=== PATIENT | female | born 1985 | race Caucasian/White ===

== ENCOUNTER 2016-06-22 14:25 | Outpatient (CLI) | payer OTHER | END 2016-06-22 14:26 | disposition critical access hospital (66) | DX: R07.9 Chest pain, unspecified (principal) | CPT/HCPCS: A0425; A0427 ==

== ENCOUNTER 2016-06-22 14:52 | Emergency (ER) | payer OTHER ==
[2016-06-22] MEDS ORDERED: MORPHINE 2 MG/ML SYRINGE IVP STA (15:13)
[2016-06-22] MEDS ORDERED: MORPHINE 2 MG/ML SYRINGE ONE (15:27)
== END 2016-06-22 18:25 | disposition home or self-care (01) ==
DX: R09.1 Pleurisy (principal); J45.909 Unspecified asthma, uncomplicated

== ENCOUNTER 2016-08-03 23:17 | Emergency (ER) | payer OTHER ==
--- NOTE | 2016-08-04 00:28 | ED Physician Documentation ---
PD HPI URI - Stated complaint Stated Complaint: COUGH/PHLEGM - Chief complaint Chief Complaint: Resp - History obtained from History obtained from: Patient - History of Present Illness Timing - onset: How many days ago (4) Timing duration: Days (4) Timing details: Gradual onset Pain level max: 0 Pain level now: 0 Associated symptoms: Dry cough. No: Fever, Chills, Sweats, Ear pain, Nasal congestion, Sinus pain, Sore throat, Productive cough, Chest pain, Dyspnea, NVD Improves by: Nothing Worsened by: Other (no exacerbating factors) Recently seen: Emergency Dept (last month (chest pain)) Review of Systems Constitutional: denies: Fever, Chills, Sweats Throat: denies: Sore throat Cardiac: denies: Chest pain / pressure Respiratory: reports: Cough. denies: Dyspnea PD PAST MEDICAL HISTORY - Past Medical History Past Medical History: No Respiratory: Asthma Musculoskeletal: Chronic back pain - Past Surgical History Past Surgical History: No - Present Medications Home Medications: Ambulatory Orders Medication Instructions Recorded Confirmed Benzonatate [Tessalon Perle] 100 mg PO TID PRN #20 capsule 08/04/16 guaiFENesin/CODEINE [Robitussin AC] 5 - 10 ml PO Q6H PRN #100 udc 08/04/16 - Allergies Allergies/Adverse Reactions: Allergies Allergy/AdvReac Type Severity Reaction Status Date / Time acetylcysteine Allergy Severe Respiratory Verified 08/03/16 23:37 [From Mucomyst] acetaminophen [From Vicodin] Allergy Intermediate Emesis Verified 12/06/13 17:29 hydrocodone bitartrate * Allergy Intermediate Emesis Verified 12/06/13 17:29 [From Vicodin] Latex, Natural Rubber AdvReac Intermediate Rash Verified 12/06/13 17:29 ciprofloxacin [From Cipro] AdvReac Mild vomiting Verified 12/06/13 17:29 and diarrhea ciprofloxacin HCl * AdvReac Mild vomiting Verified 12/06/13 17:29 [From Cipro] and diarrhea - Social History Does the pt smoke?: No Smoking Status: Never smoker Does the pt drink ETOH?: No Does the pt have substance abuse?: No - Immunizations Immunizations are current?: Yes - POLST Patient has POLST: No PD ED PE NORMAL - Vitals Vital signs reviewed: Yes - General General: Alert and oriented X 3, No acute distress, Well developed/nourished, Other (occasional dry cough during H+P) - Cardiac Cardiac: RRR, No murmur - Respiratory Respiratory: No respiratory distress, Clear bilaterally Results - Vitals Vitals: Vital Signs - 24 hr 08/03/16 08/04/16 23:22 01:02 Temperature 36.2 C L 36.9 C Heart Rate 86 89 Respiratory 16 16 Rate Blood Pressure 110/72 143/91 H O2 Saturation 98 100 Oxygen O2 Source Room air PD MEDICAL DECISION MAKING - ED course Complexity details: considered differential, d/w patient ED course: Patient c/o dry cough but no other symptoms, her chief concern is getting the cough under control so she can get some sleep. Departure - Departure Disposition: 01 Home, Self Care Clinical Impression: Cough Condition: Good Instructions: ED URI Viral Follow-Up: Jovanni Archer DO [Primary Care Provider] - Within 3 Days Prescriptions: guaiFENesin/CODEINE [Robitussin AC] 5 - 10 ml PO Q6H PRN #100 udc PRN Reason: Cough Benzonatate [Tessalon Perle] 100 mg PO TID PRN #20 capsule PRN Reason: Cough Discharge Date/Time: 08/04/16 01:04
[2016-08-04] MEDS ORDERED: guaiFENesin/CODEINE 5 ML UDC PO STA (00:56)
[2016-08-04] MEDS ORDERED: guaiFENesin/CODEINE 5 ML UDC ONE (00:58)
[2016-08-04 01:03] VITALS: BP 143/91
== END 2016-08-04 01:04 | disposition home or self-care (01) ==
LOC: ED 23:17
DX: R05 Cough (principal); J45.909 Unspecified asthma, uncomplicated
CPT/HCPCS: 99283; A9270

== ENCOUNTER 2017-07-08 03:01 | Outpatient (CLI) | payer OTHER | END 2017-07-08 03:02 | disposition critical access hospital (66) | LOC: EMS 03:01 | PROVIDERS: ATTEND Surgery | DX: R07.9 Chest pain, unspecified (principal); R10.12 Left upper quadrant pain | CPT/HCPCS: A0425; A0427 ==

== ENCOUNTER 2017-07-08 03:22 | Emergency (ER) | payer OTHER ==
--- NOTE | 2017-07-08 03:35 | ED Physician Documentation ---
PD HPI CHEST PAIN - Stated complaint Stated Complaint: ABD PAIN - Chief complaint Chief Complaint: Abd Pain - History obtained from History obtained from: Patient - History of Present Illness Timing - onset: Today Timing - onset during: Sleep Timing - details: Abrupt onset, Now resolved Quality: Aching, Sharp Location: Left chest Radiation: Abdominal Improved by: Other medication Associated symptoms: No: Shortness of air, Diaphoresis, Nausea, Vomiting Similar symptoms before: Has not had sx before Recently seen: Not recently seen - Additional information Additional information: patient is a 32 year old obese female with a history of pleurisy who is presenting to the emergency department for left sided chest pain/upper abdominal pain. The pain woke the patient up from sleep and made the patient cry out. patient's called ems. When ems arrived patient was in severe pain but able to ambulate to the ambulance. patient was treated with fentanyl 100mcg enroute. Upon arrival to the emergency department patient stated that her pain had resolved. Review of Systems Constitutional: denies: Fever, Chills Eyes: reports: Reviewed and negative Ears: reports: Reviewed and negative Respiratory: denies: Dyspnea, Cough, Wheezing GI: reports: Abdominal Pain. denies: Nausea, Vomiting : denies: Dysuria, Frequency, Hematuria Skin: denies: Rash Musculoskeletal: denies: Neck pain, Back pain Neurologic: denies: Generalized weakness, Focal weakness PD PAST MEDICAL HISTORY - Past Medical History Respiratory: Asthma Musculoskeletal: Chronic back pain - Past Surgical History Past Surgical History: No - Present Medications Home Medications: Ambulatory Orders Medication Instructions Recorded Confirmed Benzonatate [Tessalon Perle] 100 mg PO TID PRN #20 capsule 08/04/16 guaiFENesin/CODEINE [Robitussin AC] 5 - 10 ml PO Q6H PRN #100 udc 08/04/16 Meloxicam [Mobic] 15 mg PO DAILY #20 tablet 07/08/17 - Allergies Allergies/Adverse Reactions: Allergies Allergy/AdvReac Type Severity Reaction Status Date / Time acetylcysteine Allergy Severe Respiratory Verified 07/08/17 03:27 [From Mucomyst] acetaminophen [From Vicodin] Allergy Intermediate Emesis Verified 07/08/17 03:27 hydrocodone bitartrate * Allergy Intermediate Emesis Verified 07/08/17 03:27 [From Vicodin] Latex, Natural Rubber AdvReac Intermediate Rash Verified 07/08/17 03:27 ciprofloxacin [From Cipro] AdvReac Mild vomiting Verified 07/08/17 03:27 and diarrhea ciprofloxacin HCl * AdvReac Mild vomiting Verified 07/08/17 03:27 [From Cipro] and diarrhea - Social History Does the pt smoke?: No Smoking Status: Never smoker Does the pt drink ETOH?: No Does the pt have substance abuse?: No - Immunizations Immunizations are current?: Yes - POLST Patient has POLST: No PD ED PE NORMAL - Vitals Vital signs reviewed: Yes - General General: Alert and oriented X 3, No acute distress - HEENT HEENT: Atraumatic, PERRL - Neck Neck: Supple, no meningeal sign, No JVD - Cardiac Cardiac: RRR, No murmur - Respiratory Respiratory: No respiratory distress, Clear bilaterally - Abdomen Abdomen: Soft, Non tender, Non distended - Derm Derm: Normal color, Warm and dry - Extremities Extremities: No deformity - Neuro Neuro: Alert and oriented X 3, No motor deficit Eye Opening: Spontaneous Results - Vitals Vitals: Vital Signs - 24 hr 07/08/17 07/08/17 07/08/17 03:23 04:11 04:34 Temperature 36.6 C Heart Rate 99 73 78 Respiratory 18 15 18 Rate Blood Pressure 144/79 H 115/48 L 116/65 O2 Saturation 100 99 100 Oxygen O2 Source Room air - EKG (time done) 0333 Rate: Rate (enter#) (82) Rhythm: NSR [place]: Normal Intervals: Normal [place] QRS: Normal Ischemia: Normal ST segments Compare to prior EKG: Old EKG unavailable - Labs Labs: Laboratory Tests 07/08/17 07/08/17 07/08/17 03:40 03:40 03:40 WBC 8.5 RBC 5.04 Hgb 12.3 Hct 37.6 MCV 74.5 L MCH 24.3 L MCHC 32.6 RDW 16.1 H Plt Count 270 MPV 7.5 L Neut # 3.5 Lymph # 4.3 H [place] # 0.5 Eos # 0.1 Baso # 0.0 Absolute Nucleated RBC 0.01 Nucleated RBC % 0.1 Sodium 138 Potassium 3.3 L Chloride 102 Carbon Dioxide 26 Anion Gap 10.0 BUN 12 Creatinine 0.7 Estimated GFR (MDRD) 98 Glucose 109 H Calcium 8.8 Total Bilirubin 0.4 AST 40 ALT 79 H Alkaline Phosphatase 79 Troponin I < 0.04 Total Protein 7.6 Albumin 4.3 Globulin 3.3 Albumin/Globulin Ratio 1.3 Lipase 16 L HCG, Quant Urine Color Urine Clarity Urine pH Ur Specific [place] Urine Protein Urine Glucose (UA) Urine Ketones Urine Occult Blood Urine Nitrite Urine Bilirubin Urine Urobilinogen Ur Leukocyte Esterase Ur Microscopic Review Urine Culture Comments 07/08/17 07/08/17 03:40 05:34 WBC RBC Hgb Hct MCV MCH MCHC RDW Plt Count MPV Neut # Lymph # [place] # Eos # Baso # Absolute Nucleated RBC Nucleated RBC % Sodium Potassium Chloride Carbon Dioxide Anion Gap BUN Creatinine Estimated GFR (MDRD) Glucose Calcium Total Bilirubin AST ALT Alkaline Phosphatase Troponin I Total Protein Albumin Globulin Albumin/Globulin Ratio Lipase HCG, Quant < 0.60 Urine Color YELLOW Urine Clarity CLEAR Urine pH 6.0 Ur Specific [place] 1.020 Urine Protein NEGATIVE Urine Glucose (UA) NEGATIVE Urine Ketones NEGATIVE Urine Occult Blood TRACE-LYSE Urine Nitrite NEGATIVE Urine Bilirubin NEGATIVE Urine Urobilinogen 0.2 (NORMAL) Ur Leukocyte Esterase NEGATIVE Ur Microscopic Review NOT INDICATED Urine Culture Comments NOT INDICATED - Rads (name of study) chest x-ray Radiology: Final report received (normal) PD MEDICAL DECISION MAKING - ED course Complexity details: reviewed old records, reviewed results, re-evaluated patient , considered differential, d/w patient, d/w family ED course: Patient was seen and examined at bedside. patient was well appearing and in no distress. patient stated that her pain had resolved. ekg was performed and was normal sinus. IV access was gained and labs were drawn. chest x-ray was performed and was within normal limits. Patient had one episode when she stated that her pain was coming back and was treated with toradol which resolved her pain. patient's urinalysis was negative. Patient had a PERC score of 0 and a HEART score of 1. patient required no further inpatient work up and was stable for discharge with outpatient follow up. Departure - Departure Disposition: 01 Home, Self Care Clinical Impression: Pleurisy Condition: Good Instructions: ED Chest Pain Pleurisy Follow-Up: Jovanni Archer DO [Primary Care Provider] - Within 3 Days Prescriptions: Meloxicam [Mobic] 15 mg PO DAILY #20 tablet Comments: Your diagnostics were all within normal limits. There were no major abnormalities on your tests. It is difficult to say what exactly caused your pain but it is unlikely life threatening in nature. You should follow up with your doctor this week for re-evaluation. You may return to the emergency department at any time for new, worsening or uncontrollable symptoms.
[2017-07-08 03:51] LABS: BASOPHILS % (AUTO) 0.4 %; EOSINOPHILS # (AUTO) 0.1 10^3/uL (0.0-0.7); HGB - HEMOGLOBIN 12.3 g/dL (12.0-16.0); LYMPHOCYTES # (AUTO) 4.3 10^3/uL (1.5-3.5); LYMPHOCYTES % (AUTO) 51.4 %; MEAN CORPUSCULAR HEMOGLOBIN 24.3 pg (27.0-31.0); MEAN CORPUSCULAR HGB CONC 32.6 g/dL (32.0-36.0); MEAN CORPUSCULAR VOLUME 74.5 fL (81.0-99.0); MEAN PLATELET VOLUME 7.5 fL (7.9-10.8); MONOCYTES # (AUTO) 0.5 10^3/uL (0.0-1.0); MONOCYTES % (AUTO) 5.9 %; NEUTROPHILS # (AUTO) 3.5 10^3/uL (1.5-6.6); NEUTROPHILS % (AUTO) 41.3 %; PLT - PLATELET COUNT 270 10^3/uL (130-450); RED BLOOD COUNT 5.04 10^6/uL (4.20-5.40); RED CELL DISTRIBUTION WIDTH 16.1 % (12.0-15.0); WHITE BLOOD COUNT 8.5 x10^3/uL (4.8-10.8)
[2017-07-08 04:04] LABS: ALBUMIN 4.3 g/dL (3.2-5.5); ALBUMIN/GLOBULIN RATIO 1.3 (1.0-2.2); BILIRUBIN,TOTAL 0.4 mg/dL (0.2-1.0); CALCIUM 8.8 mg/dL (8.5-10.3); CREATININE 0.7 mg/dL (0.4-1.0); TOTAL PROTEIN 7.6 g/dL (6.7-8.2)
--- NOTE | 2017-07-08 04:11 | XRAY Report ---
EXAM: CHEST RADIOGRAPHY EXAM DATE: 07/08/2017 03:59 AM. CLINICAL HISTORY: Chest pain. COMPARISON: 06/22/2016. TECHNIQUE: 2 views. FINDINGS: Lungs/Pleura: No focal opacities evident. No pleural effusion. No pneumothorax. Normal volumes. Mediastinum: Heart and mediastinal contours are unremarkable. Other: None. IMPRESSION: Stable negative 2-view chest radiography. [facility] Referring Provider Line: [phone] SITE ID: [id number]
[2017-07-08] MEDS ORDERED: KETOROLAC 60 MG/2 ML VIAL IVP STA (04:29)
[2017-07-08 05:41] LABS: BILIRUBIN,URINE NEGATIVE (NEGATIVE); GLUCOSE, URINE (UA) NEGATIVE (NEGATIVE); KETONES,URINE (UA) NEGATIVE (NEGATIVE); LEUKOCYTE ESTERASE, URINE NEGATIVE (NEGATIVE); NITRITE,URINE NEGATIVE (NEGATIVE); OCCULT BLOOD,URINE TRACE-LYSE (NEGATIVE); PROTEIN,URINE NEGATIVE (NEGATIVE); UROBILINOGEN,URINE 0.2 (NORMAL) E.U./dL (NORMAL)
[2017-07-08 05:44] LABS: CLARITY,URINE CLEAR (CLEAR)
[2017-07-08 06:08] VITALS: BP 111/59
== END 2017-07-08 06:08 | disposition home or self-care (01) ==
LOC: EDUNIT# → SUPCPDRO 03:22 → ED 03:22
DX: R09.1 Pleurisy (principal); J45.909 Unspecified asthma, uncomplicated
CPT/HCPCS: 36415; 71046; 80053; 81001; 81003; 83690; 84484; 84702; 85025; 87086; 93005; 96374; 99283

== ENCOUNTER 2017-07-28 02:45 | Outpatient (CLI) | payer OTHER | END 2017-07-28 02:46 | disposition critical access hospital (66) | LOC: EMS 02:45 | PROVIDERS: ATTEND Surgery | DX: R07.9 Chest pain, unspecified (principal); R06.02 Shortness of breath; R11.0 Nausea; R53.1 Weakness; R20.0 Anesthesia of skin | CPT/HCPCS: A0425; A0429 ==

== ENCOUNTER 2017-07-28 03:04 | Emergency (ER) | payer OTHER ==
--- NOTE | 2017-07-28 03:28 | ED Physician Documentation ---
PD HPI CHEST PAIN - Stated complaint Stated Complaint: CP - Chief complaint Chief Complaint: Cardiac - History obtained from History obtained from: Patient - History of Present Illness Timing - onset: Enter time (01:30) Timing - onset during: Sleep Timing - details: Abrupt onset Quality: Pain Location: Substernal Associated symptoms: Cough. No: Shortness of air, Diaphoresis, Palpitations Similar symptoms before: Diagnosis (pleurisy) Recently seen: Emergency Dept - Additional information Additional information: woke from sleep at approximately 130 this morning with left sided enter a lateral chest pain that is distinctly pleuritic. She has had similar symptoms in the past and has had visit to this emergency department for this including last month and last year with work ups that included chest x-ray, EKG, and bloodwork, without concerning or diagnostic results. Review of Systems Constitutional: reports: Reviewed and negative Cardiac: reports: Chest pain / pressure. denies: Palpitations, Pedal edema, Calf pain Respiratory: reports: Reviewed and negative GI: reports: Reviewed and negative PD PAST MEDICAL HISTORY - Past Medical History Respiratory: Asthma Musculoskeletal: Chronic back pain - Past Surgical History Past Surgical History: No - Present Medications Home Medications: Ambulatory Orders Medication Instructions Recorded Confirmed Benzonatate [Tessalon Perle] 100 mg PO TID PRN #20 capsule 08/04/16 guaiFENesin/CODEINE [Robitussin AC] 5 - 10 ml PO Q6H PRN #100 udc 08/04/16 Meloxicam [Mobic] 15 mg PO DAILY #20 tablet 07/08/17 Ketorolac [Toradol] 10 mg PO Q6H #20 tablet 07/28/17 - Allergies Allergies/Adverse Reactions: Allergies Allergy/AdvReac Type Severity Reaction Status Date / Time acetylcysteine Allergy Severe Respiratory Verified 07/08/17 03:27 [From Mucomyst] acetaminophen [From Vicodin] Allergy Intermediate Emesis Verified 07/08/17 03:27 hydrocodone bitartrate * Allergy Intermediate Emesis Verified 07/08/17 03:27 [From Vicodin] Latex, Natural Rubber AdvReac Intermediate Rash Verified 07/08/17 03:27 ciprofloxacin [From Cipro] AdvReac Mild vomiting Verified 07/08/17 03:27 and diarrhea ciprofloxacin HCl * AdvReac Mild vomiting Verified 07/08/17 03:27 [From Cipro] and diarrhea - Social History Does the pt smoke?: No Smoking Status: Never smoker Does the pt drink ETOH?: No Does the pt have substance abuse?: No - Immunizations Immunizations are current?: Yes - POLST Patient has POLST: No PD ED PE NORMAL - Vitals Vital signs reviewed: Yes - General General: Alert and oriented X 3, Well developed/nourished, Other (appears to be in painful discomfort) - Cardiac Cardiac: RRR, No murmur - Respiratory Respiratory: No respiratory distress, Clear bilaterally - Abdomen Abdomen: Soft, Non tender - Extremities Extremities: No edema Results - Vitals Vitals: Oxygen O2 Source Room air - EKG (time done) No standard instances Rate: Rate (enter#) (74) Rhythm: NSR [place]: Normal Intervals: Normal [place] QRS: Normal Ischemia: Normal ST segments PD MEDICAL DECISION MAKING - ED course Complexity details: reviewed old records, considered differential, d/w patient ED course: similar to previous episodes with unremarkable w/u previously including 3 weeks ago. PERC negative (zero). appeared uncomfortable on arrival and initial exam but NAD and reported good relief on reevaluation after toradol. Departure - Departure Disposition: 01 Home, Self Care Clinical Impression: Pleurisy Condition: Good Instructions: ED Chest Pain Pleurisy Prescriptions: Ketorolac [Toradol] 10 mg PO Q6H #20 tablet Comments: Do not take meloxicam (mobic) or other NSAIDs (such as ibuprofen (Advil, Motrin ) or Aleve) while taking toradol. Discharge Date/Time: 07/28/17 06:00
[2017-07-28] MEDS ORDERED: KETOROLAC 60 MG/2 ML VIAL IVP STA (03:55)
[2017-07-28 05:51] VITALS: BP 119/78
== END 2017-07-28 06:00 | disposition home or self-care (01) ==
LOC: EDUNIT# → ED 03:04
DX: R09.1 Pleurisy (principal)
CPT/HCPCS: 93005; 96374; 99283; 99284

== ENCOUNTER 2017-10-23 13:36 | Emergency (ER) | payer OTHER ==
[2017-10-23] MEDS ORDERED: KETOROLAC 10 MG TABLET PO STA (14:09)
--- NOTE | 2017-10-23 14:09 | ED Physician Documentation ---
PD HPI ABD PAIN - Stated complaint Stated Complaint: CP - Chief complaint Chief Complaint: Cardiac - History obtained from History obtained from: Patient - History of Present Illness Timing - onset: Yesterday (This is a 32-year-old woman with recurrent visits for chest pain, previous diagnosis of pleurisy. Since yesterday she has had left lower anterior pain that is worse with deep breathing. Unlike prior episodes is very dull, not sharp. She is not short of breath per se but has difficulty taking a deep breath. She denies hemoptysis, cough, pedal edema, calf pain, recent travel, or control use.) - Additional information Additional information: She feels this new pain might be related to anxiety. Her was diagnosed with squamous cell carcinoma of the skin yesterday. Review of Systems Constitutional: denies: Fever, Chills, Fatigue Cardiac: denies: Palpitations, Pedal edema, Calf pain Respiratory: denies: Dyspnea, Cough GI: denies: Abdominal Pain PD PAST MEDICAL HISTORY - Past Medical History Respiratory: Asthma Musculoskeletal: Chronic back pain - Past Surgical History Past Surgical History: No - Present Medications Home Medications: Ambulatory Orders Medication Instructions Recorded Confirmed Benzonatate [Tessalon Perle] 100 mg PO TID PRN #20 capsule 08/04/16 guaiFENesin/CODEINE [Robitussin AC] 5 - 10 ml PO Q6H PRN #100 udc 08/04/16 Meloxicam [Mobic] 15 mg PO DAILY #20 tablet 07/08/17 Ketorolac [Toradol] 10 mg PO Q6H #20 tablet 07/28/17 - Allergies Allergies/Adverse Reactions: Allergies Allergy/AdvReac Type Severity Reaction Status Date / Time acetylcysteine Allergy Severe Respiratory Verified 07/08/17 03:27 [From Mucomyst] acetaminophen [From Vicodin] Allergy Intermediate Emesis Verified 07/08/17 03:27 hydrocodone bitartrate * Allergy Intermediate Emesis Verified 07/08/17 03:27 [From Vicodin] Latex, Natural Rubber AdvReac Intermediate Rash Verified 07/08/17 03:27 ciprofloxacin [From Cipro] AdvReac Mild vomiting Verified 07/08/17 03:27 and diarrhea ciprofloxacin HCl * AdvReac Mild vomiting Verified 07/08/17 03:27 [From Cipro] and diarrhea - Social History Does the pt smoke?: No Smoking Status: Never smoker Does the pt drink ETOH?: No Does the pt have substance abuse?: No - Immunizations Immunizations are current?: Yes - POLST Patient has POLST: No PD ED PE NORMAL - Vitals Vital signs reviewed: Yes - General General: Alert and oriented X 3, No acute distress - HEENT HEENT: PERRL, EOMI - Neck Neck: Supple, no meningeal sign, No bony TTP - Cardiac Cardiac: RRR, No murmur - Respiratory Respiratory: No respiratory distress, Clear bilaterally, Other (Tender left low lateral chest wall which reproduces her pain, no corresponding left upper quadrant tenderness.) - Abdomen Abdomen: Non tender - Extremities Extremities: No edema, No calf tenderness / cord - Neuro Neuro: Alert and oriented X 3, Normal speech Results - Vitals Vitals: Vital Signs - 24 hr 10/23/17 10/23/17 13:40 15:07 Temperature 36.2 C L Heart Rate 86 67 Respiratory 18 18 Rate Blood Pressure 144/74 H 126/75 O2 Saturation 98 100 Oxygen O2 Source Room air - EKG (time done) 1349 Rate: Rate (enter#) (85) Rhythm: NSR [place]: Normal QRS: Normal Ischemia: Normal ST segments Computer interpretation: Agree with computer - Labs Labs: Laboratory Tests 10/23/17 10/23/17 10/23/17 14:15 14:15 14:15 WBC 9.1 RBC 5.11 Hgb 12.6 Hct 38.1 MCV 74.5 L MCH 24.7 L MCHC 33.2 RDW 15.8 H Plt Count 317 MPV 7.1 L Neut # (Auto) 5.8 Lymph # (Auto) 2.6 [place] # (Auto) 0.6 Eos # (Auto) 0.0 Baso # (Auto) 0.0 Absolute Nucleated RBC 0.00 Nucleated RBC % 0.0 Sodium 135 Potassium 3.7 Chloride 99 L Carbon Dioxide 26 Anion Gap 10.0 BUN 12 Creatinine 0.7 Estimated GFR (MDRD) 98 Glucose 112 H Calcium 8.8 Total Bilirubin 0.9 AST 44 H ALT 41 Alkaline Phosphatase 62 Troponin I < 0.04 Total Protein 7.4 Albumin 4.2 Globulin 3.2 Albumin/Globulin Ratio 1.3 Lipase 20 L PD MEDICAL DECISION MAKING - ED course ED course: I considered pulmonary embolism in this patient. Clinically the pretest probability of pulmonary embolism is less than 15%. I applied to the PERC rules as follows: The patient's age is under 50, heart rate less than 100, oxygen saturation greater than 94%, the patient does not have a history of DVT or PE. Patient has no recent trauma or surgery. The patient has no hemoptysis. The patient is not on exogenous estrogens. The patient does not have clinical signs suggesting DVT. As such the patient ruled out for pulmonary embolism by PERC criteria. Heart score 0. May be due to anxiety or just chest wall pain. I offered her something for anxiety, but she has propranolol at home for the same purpose which she intends to use. - Sepsis Event Vital Signs: Vital Signs - 24 hr 10/23/17 10/23/17 13:40 15:07 Temperature 36.2 C L Heart Rate 86 67 Respiratory 18 18 Rate Blood Pressure 144/74 H 126/75 O2 Saturation 98 100 Oxygen O2 Source Room air Departure - Departure Disposition: 01 Home, Self Care Clinical Impression: Chest wall pain Condition: Good Record reviewed to determine appropriate education?: Yes Instructions: ED Chest Pain NonCardiac Comments: Call your doctor to arrange a follow-up appointment, make the next available appointment. In the interim, return anytime if worse or if new symptoms develop.
[2017-10-23 14:23] LABS: BASOPHILS % (AUTO) 0.3 %; EOSINOPHILS % (AUTO) 0.4 %; HGB - HEMOGLOBIN 12.6 g/dL (12.0-16.0); LYMPHOCYTES # (AUTO) 2.6 10^3/uL (1.5-3.5); LYMPHOCYTES % (AUTO) 29.1 %; MEAN CORPUSCULAR HEMOGLOBIN 24.7 pg (27.0-31.0); MEAN CORPUSCULAR HGB CONC 33.2 g/dL (32.0-36.0); MEAN CORPUSCULAR VOLUME 74.5 fL (81.0-99.0); MEAN PLATELET VOLUME 7.1 fL (7.9-10.8); MONOCYTES # (AUTO) 0.6 10^3/uL (0.0-1.0); MONOCYTES % (AUTO) 6.3 %; NEUTROPHILS # (AUTO) 5.8 10^3/uL (1.5-6.6); NEUTROPHILS % (AUTO) 63.9 %; PLT - PLATELET COUNT 317 10^3/uL (130-450); RED BLOOD COUNT 5.11 10^6/uL (4.20-5.40); RED CELL DISTRIBUTION WIDTH 15.8 % (12.0-15.0); WHITE BLOOD COUNT 9.1 x10^3/uL (4.8-10.8)
[2017-10-23 14:41] LABS: ALBUMIN 4.2 g/dL (3.2-5.5); ALBUMIN/GLOBULIN RATIO 1.3 (1.0-2.2); BILIRUBIN,TOTAL 0.9 mg/dL (0.2-1.0); CALCIUM 8.8 mg/dL (8.5-10.3); CREATININE 0.7 mg/dL (0.4-1.0); TOTAL PROTEIN 7.4 g/dL (6.7-8.2)
[2017-10-23 15:09] VITALS: BP 126/75
== END 2017-10-23 15:56 | disposition home or self-care (01) ==
LOC: ED 13:36
DX: R07.89 Other chest pain (principal); F41.9 Anxiety disorder, unspecified
CPT/HCPCS: 36415; 80053; 83690; 84484; 85025; 93005; 99283; A9270

== ENCOUNTER 2017-10-24 11:51 | Emergency (ER) | payer OTHER ==
[2017-10-24] MEDS ORDERED: fentaNYL 100 MCG/2 ML VIAL IVP STA ×4 (12:39→20:16)
[2017-10-24] MEDS ORDERED: KETOROLAC 30 MG/ML VIAL IVP STA (12:39)
[2017-10-24] MEDS ORDERED: SODIUM CHLORIDE 0.9% 1,000 ML IV ONE (12:39)
[2017-10-24] MEDS ORDERED: ONDANSETRON 4 MG/2 ML VIAL IVP STA (12:39)
[2017-10-24 12:40] LABS: BASOPHILS % (AUTO) 0.4 %; EOSINOPHILS % (AUTO) 0.6 %; HGB - HEMOGLOBIN 12.7 g/dL (12.0-16.0); LYMPHOCYTES # (AUTO) 2.1 10^3/uL (1.5-3.5); LYMPHOCYTES % (AUTO) 37.1 %; MEAN CORPUSCULAR HEMOGLOBIN 24.9 pg (27.0-31.0); MEAN CORPUSCULAR HGB CONC 33.2 g/dL (32.0-36.0); MEAN CORPUSCULAR VOLUME 75.1 fL (81.0-99.0); MEAN PLATELET VOLUME 7.4 fL (7.9-10.8); MONOCYTES # (AUTO) 0.4 10^3/uL (0.0-1.0); MONOCYTES % (AUTO) 7.6 %; NEUTROPHILS # (AUTO) 3.1 10^3/uL (1.5-6.6); NEUTROPHILS % (AUTO) 54.3 %; PLT - PLATELET COUNT 304 10^3/uL (130-450); RED BLOOD COUNT 5.08 10^6/uL (4.20-5.40); RED CELL DISTRIBUTION WIDTH 15.8 % (12.0-15.0); WHITE BLOOD COUNT 5.7 x10^3/uL (4.8-10.8)
[2017-10-24 12:59] LABS: ALBUMIN 4.2 g/dL (3.2-5.5); ALBUMIN/GLOBULIN RATIO 1.2 (1.0-2.2); BILIRUBIN,TOTAL 3.6 mg/dL (0.2-1.0); CALCIUM 8.9 mg/dL (8.5-10.3); CREATININE 0.5 mg/dL (0.4-1.0); TOTAL PROTEIN 7.7 g/dL (6.7-8.2)
[2017-10-24 14:01] LABS: GLUCOSE, URINE (UA) NEGATIVE (NEGATIVE); KETONES,URINE (UA) NEGATIVE (NEGATIVE); LEUKOCYTE ESTERASE, URINE NEGATIVE (NEGATIVE); NITRITE,URINE NEGATIVE (NEGATIVE); OCCULT BLOOD,URINE TRACE-LYSE (NEGATIVE); PROTEIN,URINE NEGATIVE (NEGATIVE); UROBILINOGEN,URINE 0.2 (NORMAL) E.U./dL (NORMAL)
[2017-10-24 14:06] LABS: BILIRUBIN,URINE MODERATE (NEGATIVE); CLARITY,URINE CLEAR (CLEAR); ICTOTEST,URINE POSITIVE
[2017-10-24 14:08] LABS: HCG UR QUAL NEGATIVE
--- NOTE | 2017-10-24 14:48 | ED Physician Documentation ---
PD HPI ABD PAIN - Stated complaint Stated Complaint: ABD/CHEST PX - Chief complaint Chief Complaint: Abd Pain - History obtained from History obtained from: Patient - History of Present Illness Timing - onset: How many minutes ago (30) Quality: Pain Location: RUQ Associated symptoms: Nausea, Vomiting (last night, but not today.). No: Fever Recently seen: Emergency Dept - Additional information Additional information: The patient is a 32-year-old female who presents with right upper quadrant abdominal pain that today started just prior to arrival. She was seen in this emergency department yesterday with left lower chest pain, and was diagnosed with chest wall pain. Her CBC and chemistry panel were normal, and she was considered low risk for pulmonary embolus. She developed worsening of her symptoms last night and was seen at [facility] emergency department where she underwent CT scan of her abdomen, which revealed cholelithiasis. However tenderness was mostly in the left costal margin rather than the right upper quadrant, so she was discharged with diagnosis of costochondritis. Today she developed sudden onset of more severe pain in the right upper quadrant/ epigastric region just prior to arrival. She reports associated nausea without vomiting. She denies fever or dysuria. She reports that more than 1 year ago she was diagnosed with "gallbladder sludge." Review of Systems Constitutional: denies: Fever Nose: denies: Congestion Throat: denies: Sore throat Cardiac: denies: Chest pain / pressure Respiratory: denies: Dyspnea, Cough GI: reports: Abdominal Pain, Nausea. denies: Vomiting : denies: Dysuria Skin: denies: Rash Musculoskeletal: denies: Back pain Neurologic: denies: Headache PD PAST MEDICAL HISTORY - Past Medical History Past Medical History: Yes Respiratory: Asthma GI: Cholelithiasis Musculoskeletal: Chronic back pain - Past Surgical History Past Surgical History: No - Present Medications Home Medications: Ambulatory Orders Medication Instructions Recorded Confirmed Benzonatate [Tessalon Perle] 100 mg PO TID PRN #20 capsule 08/04/16 guaiFENesin/CODEINE [Robitussin AC] 5 - 10 ml PO Q6H PRN #100 udc 08/04/16 Meloxicam [Mobic] 15 mg PO DAILY #20 tablet 07/08/17 Ketorolac [Toradol] 10 mg PO Q6H #20 tablet 07/28/17 - Allergies Allergies/Adverse Reactions: Allergies Allergy/AdvReac Type Severity Reaction Status Date / Time acetylcysteine Allergy Severe Respiratory Verified 07/08/17 03:27 [From Mucomyst] acetaminophen [From Vicodin] Allergy Intermediate Emesis Verified 07/08/17 03:27 hydrocodone bitartrate * Allergy Intermediate Emesis Verified 07/08/17 03:27 [From Vicodin] Latex, Natural Rubber AdvReac Intermediate Rash Verified 07/08/17 03:27 ciprofloxacin [From Cipro] AdvReac Mild vomiting Verified 07/08/17 03:27 and diarrhea ciprofloxacin HCl * AdvReac Mild vomiting Verified 07/08/17 03:27 [From Cipro] and diarrhea - Social History Does the pt smoke?: No Smoking Status: Never smoker Does the pt drink ETOH?: No Does the pt have substance abuse?: No - Immunizations Immunizations are current?: Yes - POLST Patient has POLST: No PD ED PE NORMAL - Vitals Vital signs reviewed: Yes (Borderline hypertension initially.) - General General: Alert and oriented X 3, Well developed/nourished, Other (Overweight.) - HEENT HEENT: Atraumatic, Moist mucous membranes - Neck Neck: No adenopathy, No JVD - Cardiac Cardiac: RRR, No murmur - Respiratory Respiratory: No respiratory distress, Clear bilaterally - Abdomen Abdomen: Normal bowel sounds, Soft, Other (Tenderness to palpation in the right upper quadrant, without rebound tenderness or guarding.) - Back Back: No CVA TTP - Derm Derm: No rash - Extremities Extremities: No edema, No calf tenderness / cord - Neuro Neuro: Alert and oriented X 3, No motor deficit, Normal speech Results - Vitals Vitals: Vital Signs - 24 hr 10/24/17 10/24/17 10/24/17 12:00 13:51 17:53 Temperature 36.1 C L Heart Rate 88 74 98 Respiratory 22 16 20 Rate Blood Pressure 131/88 H 114/89 H 120/62 O2 Saturation 96 100 100 Oxygen O2 Source Room air - Labs Labs: Laboratory Tests 10/24/17 10/24/17 10/24/17 12:28 12:28 13:30 WBC 5.7 RBC 5.08 Hgb 12.7 Hct 38.2 MCV 75.1 L MCH 24.9 L MCHC 33.2 RDW 15.8 H Plt Count 304 MPV 7.4 L Neut # (Auto) 3.1 Lymph # (Auto) 2.1 Toombs # (Auto) 0.4 Eos # (Auto) 0.0 Baso # (Auto) 0.0 Absolute Nucleated RBC 0.00 Nucleated RBC % 0.0 Sodium 138 Potassium 3.8 Chloride 103 Carbon Dioxide 27 Anion Gap 8.0 BUN 8 Creatinine 0.5 Estimated GFR (MDRD) 145 Glucose 108 H Calcium 8.9 Total Bilirubin 3.6 H AST 395 H ALT 661 H Alkaline Phosphatase 102 Total Protein 7.7 Albumin 4.2 Globulin 3.5 Albumin/Globulin Ratio 1.2 Lipase 23 Urine Color ORANGE Urine Clarity CLEAR Urine pH 7.0 Ur Specific [place] 1.015 Urine Protein NEGATIVE Urine Glucose (UA) NEGATIVE Urine Ketones NEGATIVE Urine Occult Blood TRACE-LYSE Urine Nitrite NEGATIVE Urine Bilirubin MODERATE H Urine Urobilinogen 0.2 (NORMAL) Ur Leukocyte Esterase NEGATIVE Ur Microscopic Review NOT INDICATED Urine Culture Comments NOT INDICATED Urine HCG, Qual NEGATIVE - Rads (name of study) RUQ U/S Radiology: Prelim report reviewed, EMP read contemporaneously, See rad report ( Gallstones within a distended gallbladder, raising possibility of cholecystitis. However other findings of acute cholecystitis are not seen. Gallbladder wall thickness is normal. The common bile duct is dilated for age at 6.8 mm.) PD MEDICAL DECISION MAKING - ED course Complexity details: reviewed old records, reviewed results, re-evaluated patient , considered differential, d/w patient, d/w consultants intern ED course: The patient's presentation is significant for biliary colic with gallstones seen on ultrasound, with a dilated common bile duct at 6.8 mm, and with acutely elevated liver enzymes. Total bilirubin today is 3.6 compared to 0.9 yesterday. AST today is 395 compared to 44 yesterday. ALT today is 661, compared to 41 yesterday. Lipase is normal at 23. White count is normal at 5.7. Treatment in the emergency department included administration of normal saline 1 L IV, Zofran 4 mg IV, ketorolac 30 mg IV, and fentanyl 50 mcg IV 3. Zosyn 3.375 mg was administered IV. I discussed the patient's condition with Dr. Javi Johnson who is on-call for general surgery. He advises transferring to a facility where an ERCP can be performed. I discussed her condition with Dr. Borges, roll forger at [facility]. She agrees to see the patient, but advises that the hospitalist will need to be the accepting physician. I discussed her condition with Dr. Cheyanne Menard, the hospitalist at [facility], and she agrees to accept the patient in transfer. The patient is being transferred by [facility]. Transfer forms were completed. - Sepsis Event Vital Signs: Vital Signs - 24 hr 10/24/17 10/24/17 10/24/17 12:00 13:51 17:53 Temperature 36.1 C L Heart Rate 88 74 98 Respiratory 22 16 20 Rate Blood Pressure 131/88 H 114/89 H 120/62 O2 Saturation 96 100 100 Oxygen O2 Source Room air Departure - Departure Disposition: 02 Transfer Acute Care Hosp Clinical Impression: Biliary colic, Cholecystitis, Common bile duct dilatation, Elevated liver enzymes Condition: Stable
--- NOTE | 2017-10-24 17:24 | Ultrasound Report ---
Procedure Date: 10/24/2017 Accession Number: [id number] / [id number] Procedure: US - Abdomen Limited CPT Code: FULL RESULT: EXAM: ABDOMEN ULTRASOUND LIMITED, RUQ EXAM DATE: 10/24/2017 05:13 PM. CLINICAL HISTORY: RUQ abdominal pain, with elevated liver enzymes. COMPARISON: None. TECHNIQUE: Real-time scanning was performed with static images obtained. FINDINGS: Liver: The liver parenchyma is heterogeneous and echogenic. No focal liver mass. 16.9 cm. Main portal vein flow: Hepatopetal. Gallbladder: There are multiple small gallstones. Gallbladder wall thickness is normal at 2.2 mm. The gallbladder appears dilated measuring 4.9 cm in diameter. No pericholecystic fluid. Negative ultrasound Perkins's sign. Biliary System: CBD measures 6.8 mm. No intrahepatic or extrahepatic ductal dilatation. Other: Right kidney measures 11.4 cm in length without hydronephrosis. IMPRESSION: 1. Gallstones within a distended gallbladder, raising possibility of cholecystitis, however other findings of acute cholecystitis are not seen. Gallbladder wall thickness is normal. 2. The common bile duct is dilated for age at 6.8 mm. RADIA
[2017-10-24] MEDS ORDERED: PIPERACILLIN/TAZOBACTAM 3.375 GM in SODIUM CHLORIDE 0.9% MINIBAG 100 ML IV STA (18:06)
[2017-10-24 19:45] VITALS: BP 128/76
== END 2017-10-24 20:35 | disposition short-term general hospital (02) ==
LOC: ED 11:51
DX: K80.40 Calculus of bile duct with cholecystitis, unspecified, without obstruction (principal); R74.8 Abnormal levels of other serum enzymes
CPT/HCPCS: 36415; 76705; 80053; 81001; 81003; 81025; 83690; 85025; 87086; 96365; 96375; 96376; 99284

== ENCOUNTER 2017-10-24 20:28 | Outpatient (CLI) | payer OTHER | END 2017-10-24 20:29 | disposition short-term general hospital (02) | LOC: EMS 20:28 | PROVIDERS: ATTEND Surgery | DX: R10.11 Right upper quadrant pain (principal); R11.2 Nausea with vomiting, unspecified | CPT/HCPCS: A0425; A0426 ==

== ENCOUNTER 2018-10-29 18:25 | Outpatient (CLI) | payer OTHER | END 2018-10-29 18:26 | disposition critical access hospital (66) | LOC: EMS 18:25 | PROVIDERS: ATTEND Surgery | DX: R05 Cough (principal); R06.00 Dyspnea, unspecified | CPT/HCPCS: A0425; A0429 ==

== ENCOUNTER 2018-10-29 18:49 | Emergency (ER) | payer OTHER ==
--- NOTE | 2018-10-29 20:20 | ED Physician Documentation ---
History of Present Illness - Stated complaint Stated Complaint: + TB WITH COUGH - Chief complaint Chief Complaint: Resp - Additonal information Additional information: This is a 33-year-old female who presents with hemoptysis as well as a recent positive quanitferon gold test. 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 Today she began developing a cough and she noticed small streaks of blood in her sputum. She in retrospect looks back and realizes that she has a small amount of sweating at night over the last several weeks, but she denies chills or sweats that soaked the bed. No recent travel. No leg swelling, shortness of breath, history of blood clots. Review of Systems Constitutional: denies: Weight Loss Nose: denies: Rhinorrhea / runny nose Cardiac: denies: Chest pain / pressure Respiratory: reports: Hemoptysis PD PAST MEDICAL HISTORY - Past Medical History Past Medical History: Yes Respiratory: Asthma, Tuberculosis GI: Cholelithiasis Musculoskeletal: Chronic back pain Other Past Medical History: Recnt TB - Past Surgical History Past Surgical History: Yes General: Cholecystectomy - Present Medications Home Medications: Ambulatory Orders Medication Instructions Recorded Confirmed Benzonatate [Tessalon Perle] 100 mg PO TID PRN #20 capsule 08/04/16 guaiFENesin/CODEINE [Robitussin AC] 5 - 10 ml PO Q6H PRN #100 udc 08/04/16 Meloxicam [Mobic] 15 mg PO DAILY #20 tablet 07/08/17 Ketorolac [Toradol] 10 mg PO Q6H #20 tablet 07/28/17 - Allergies Allergies/Adverse Reactions: Allergies Allergy/AdvReac Type Severity Reaction Status Date / Time acetylcysteine Allergy Severe Respiratory Verified 10/29/18 19:06 [From Mucomyst] acetaminophen [From Vicodin] Allergy Intermediate Emesis Verified 10/29/18 19:06 hydrocodone bitartrate * Allergy Intermediate Emesis Verified 10/29/18 19:06 [From Vicodin] Latex, Natural Rubber AdvReac Intermediate Rash Verified 10/29/18 19:06 ciprofloxacin [From Cipro] AdvReac Mild vomiting Verified 10/29/18 19:06 and diarrhea ciprofloxacin HCl * AdvReac Mild vomiting Verified 10/29/18 19:06 [From Cipro] and diarrhea - Social History Does the pt smoke?: No Smoking Status: Never smoker Does the pt drink ETOH?: No Does the pt have substance abuse?: No - Immunizations Immunizations are current?: Yes - POLST Patient has POLST: No PD ED PE NORMAL - Vitals Vital signs reviewed: Yes - General General: Alert and oriented X 3, No acute distress - HEENT HEENT: PERRL - Cardiac Cardiac: RRR, No murmur - Respiratory Respiratory: Clear bilaterally - Abdomen Abdomen: Non distended - Derm Derm: Warm and dry - Extremities Extremities: No deformity - Neuro Neuro: Alert and oriented X 3 - Psych Psych: Normal mood, Normal affect Results - Vitals Vitals: Vital Signs - 24 hr 10/29/18 10/29/18 19:00 23:29 Temperature 36.8 C 36.8 C Heart Rate 78 64 Respiratory 18 16 Rate Blood Pressure 139/93 H 105/52 L O2 Saturation 99 100 Oxygen O2 Source Room air - Rads (name of study) Chest XR Radiology: Other (No acute cardiopulmonary abnormality) PD MEDICAL DECISION MAKING - ED course Complexity details: considered differential (Active TB, latent TB, false positive, bronchitis, viral syndrome, PE) ED course: Patient was placed on droplet and airborne precautions, she is very well- appearing on exam. Her x-ray shows no signs of active tuberculosis. She does have a history of possible TB exposure, and given her hemoptysis, I spoke to Dr. Stanley reviewed of infectious disease on the phone, who recommends that she undergo 3 sputum smears and acid-fast bacterial cultures. He states that she does not have to stay inpatient for this to be done given that she has no signs of active TB on her chest x-ray. I spoke with Dr. Stoll who also does not feel she should be admitted. Other causes of hemoptysis were considered, however patient has no signs of DVT, normal heart rate, no recent surgeries or immobilization, normal oxygen saturation, she clinically is very low risk for PE and bronchitis or TB better explains her hemoptysis. First sputum culture was obtained here, I spoke with patient who will arrange with her primary care provider or employee health to obtain the second 2 sputums as well as a ppd placement. I reviewed strict return precautions with the patient, and she will return to the emergency department if she is unable to complete testing. She agrees and was discharged home Departure - Departure Disposition: 01 Home, Self Care Clinical Impression: Hemoptysis Condition: Good Comments: You were seen today for blood in your sputum with a recent positive quantiferon gold. You need 2 more sputum samples for testing, you can arrange these with your PCP or employee health. You should discuss antibiotic treatment with your PCP as well - the treatment will be different depending on if this is latent or active TB (or a false positive). You should have a PPD placed as well. If you are unable to get this done, you may return to the ED tomorrow for another sputum test. If you develop shortness of breath, increasing blood in his sputum, or other concerning symptoms please return to the emergency department.
--- NOTE | 2018-10-29 22:06 | XRAY Report ---
Reason: coughing up blood Procedure Date: 10/29/2018 Accession Number: [id number] / [id number] Procedure: XR - Chest 1 View X-Ray CPT Code: 85404 FULL RESULT: EXAM: CHEST RADIOGRAPHY EXAM DATE: 10/29/2018 09:59 PM. CLINICAL HISTORY: Coughing up blood. Recent TB exposure. COMPARISON: CHEST 2 VIEW 07/08/2017 3:35 AM CHEST 2 VIEW 10/28/2018 10:15 AM CHEST 2 VIEW PA/LAT 06/22/2016 5:16 PM. TECHNIQUE: 1 view. FINDINGS: Lungs/Pleura: No significant consolidation, effusion, or definite pneumothorax. Mediastinum: Cardiac silhouette is within normal limits when accounting for lung volumes and technique. Other: No evident acute displaced fracture. IMPRESSION: Stable appearance. No acute cardiopulmonary abnormality demonstrated. RADIA
[2018-10-30 01:22] VITALS: BP 107/76
== END 2018-10-30 01:22 | disposition home or self-care (01) ==
LOC: EDUNIT# → ED 18:49
DX: R04.2 Hemoptysis (principal); Z11.1 Encounter for screening for respiratory tuberculosis
CPT/HCPCS: 71045; 99283; 99284

== ENCOUNTER 2020-10-27 02:17 | Emergency (ER) | payer OTHER ==
[2020-10-27 02:50] LABS: BILIRUBIN,URINE NEGATIVE (NEGATIVE); GLUCOSE, URINE (UA) NEGATIVE (NEGATIVE); KETONES,URINE (UA) TRACE mg/dL (NEGATIVE); LEUKOCYTE ESTERASE, URINE MODERATE (NEGATIVE); NITRITE,URINE POSITIVE (NEGATIVE); OCCULT BLOOD,URINE LARGE (NEGATIVE); PH,URINE 6.5 PH (5.0-7.5); UROBILINOGEN,URINE 1 (NORMAL) E.U./dL (NORMAL)
[2020-10-27 03:01] LABS: BACTERIA,URINE Few /HPF (None Seen); CLARITY,URINE CLOUDY (CLEAR); RBC,URINE TNTC /HPF (0-5); SQUAMOUS EPITHELIAL CELL,UR RARE Squamous (<= Few)
[2020-10-27 03:08] LABS: HCG UR QUAL NEGATIVE
[2020-10-27] MEDS ORDERED: CEFPODOXIME PROXETIL 100 MG TABLET PO STA (03:10)
[2020-10-27] MEDS ORDERED: PHENAZOPYRIDINE 100 MG TABLET PO STA (03:15)
--- NOTE | 2020-10-27 03:18 | ED Physician Documentation ---
History of Present Illness - Stated complaint Stated Complaint: BLOOD IN URINE, LOW BACK PX - Chief complaint Chief Complaint: UTI - History obtained from History obtained from: Patient - Additonal information Additional information: 35-year-old woman with past medical history of remote UTI 12 years ago presents with progressive symptoms over the past 48 hours of increased frequency, suprapubic discomfort, mid back pain, and hematuria that developed late this evening. Denies fevers. Pain is suprapubic, aching, constant, gradual onset, radiating to the back, mild, worse with urination. Review of Systems Constitutional: denies: Fever, Chills GI: reports: Abdominal Pain. denies: Nausea, Vomiting : reports: Dysuria, Frequency, Hematuria Musculoskeletal: reports: Back pain PD PAST MEDICAL HISTORY - Past Medical History Past Medical History: Yes Respiratory: Asthma, Tuberculosis GI: Cholelithiasis Psych: ADD/ADHD Musculoskeletal: Chronic back pain - Past Surgical History Past Surgical History: Yes General: Cholecystectomy - Present Medications Home Medications: Ambulatory Orders Medication Instructions Recorded Confirmed Cefpodoxime Proxetil [Vantin] 200 mg PO Q12H #28 tablet 10/27/20 Sertraline HCl 100 mg PO DAILY 10/27/20 10/27/20 - Allergies Allergies/Adverse Reactions: Allergies Allergy/AdvReac Type Severity Reaction Status Date / Time acetylcysteine Allergy Severe Respiratory Verified 10/27/20 02:40 [From Mucomyst] acetaminophen [From Vicodin] Allergy Intermediate Emesis Verified 10/27/20 02:40 hydrocodone bitartrate * Allergy Intermediate Emesis Verified 10/27/20 02:40 [From Vicodin] Latex, Natural Rubber AdvReac Intermediate Rash Verified 10/27/20 02:40 ciprofloxacin [From Cipro] AdvReac Mild vomiting Verified 10/27/20 02:40 and diarrhea ciprofloxacin HCl * AdvReac Mild vomiting Verified 10/27/20 02:40 [From Cipro] and diarrhea - Social History Does the pt smoke?: No Smoking Status: Never smoker Does the pt drink ETOH?: No Does the pt have substance abuse?: No - Immunizations Immunizations are current?: Yes - POLST Patient has POLST: No PD ED PE NORMAL - Vitals Vital signs reviewed: Yes - General General: Alert and oriented X 3, No acute distress, Well developed/nourished - HEENT HEENT: Atraumatic, PERRL, EOMI - Neck Neck: Supple, no meningeal sign - Abdomen Abdomen: Non tender, Non distended, Other (Discomfort to suprapubic palpation) - Back Back: Other (Bilateral CVA tenderness palpation) - Derm Derm: Normal color, Warm and dry - Extremities Extremities: No deformity Results - Vitals Vitals: Vital Signs - 24 hr 10/27/20 02:33 Temperature 97.8 C H Heart Rate 87 Respiratory 18 Rate Blood Pressure 112/79 O2 Saturation 98 Oxygen O2 Source Room air - Labs Labs: Laboratory Tests 10/27/20 10/27/20 02:37 02:37 Urine Color RED/BLOODY Urine Clarity CLOUDY Urine pH 6.5 Ur Specific [place] 1.025 Urine Protein Urine Glucose (UA) NEGATIVE Urine Ketones TRACE Urine Occult Blood LARGE H Urine Nitrite POSITIVE H Urine Bilirubin NEGATIVE Urine Urobilinogen 1 (NORMAL) Ur Leukocyte Esterase MODERATE H Urine RBC TNTC H Urine WBC 6-10 H Ur Squamous Epith Cells RARE Squamous Urine Bacteria Few Urine Culture Comments INDICATED Urine HCG, Qual NEGATIVE PD MEDICAL DECISION MAKING - ED course ED course: 35-year-old woman presents with symptoms concerning for pyelonephritis. Will treat with antibiotics. Return precautions given. Patient will follow up with her primary doctor. Departure - Departure Disposition: 01 Home, Self Care Clinical Impression: UTI (urinary tract infection) Condition: Good Instructions: ED Kidney Infec Female Prescriptions: Cefpodoxime Proxetil [Vantin] 200 mg PO Q12H #28 tablet Comments: You are seen in the emergency department for urinary tract infection. Please take your antibiotics as prescribed and return to the emergency department if you develop any new or worsening symptoms. Follow-up with your primary doctor.
[2020-10-27 04:12] VITALS: BP 113/74
== END 2020-10-27 04:11 | disposition home or self-care (01) ==
LOC: ED 02:17
DX: N39.0 Urinary tract infection, site not specified (principal)
CPT/HCPCS: 81001; 81025; 87086; 87181; 99283; A9270

== ENCOUNTER 2020-12-05 13:53 | Emergency (ER) | payer OTHER ==
[2020-12-05 14:00] VITALS: BP 152/67
--- NOTE | 2020-12-05 14:09 | ED Physician Documentation ---
PD HPI Fall - Stated complaint Stated Complaint: LT FOOT/THUMB INJURY - Chief complaint Chief Complaint: Trauma Ext - History obtained from History obtained from: Patient - History of Present Illness Mechanism of injury: Tripped Fall distance: Standing position Where injury occurred: Home Timing - onset: Today Injury(ies) location: Left Lower Extremity, Left Hand Quality of pain: Pain Associated symptoms: No: LOC, AMS, Amnesia Symptoms improve with: Rest Worsens with: Movement, Palpation Contributing factors: No: Anticoagulated Similar symptoms before: Has not had sx before Recently seen: Not recently seen - Additional information Additional information: 35-year-old female was going up some concrete steps when she fell forward landing directly on the left knee against the steps and jamming her left thumb. In addition she has some bleeding from her left great toe. Review of Systems Constitutional: denies: Fever Eyes: denies: Decreased vision Ears: denies: Ear pain Nose: denies: Congestion Respiratory: denies: Cough GI: denies: Vomiting PD PAST MEDICAL HISTORY - Past Medical History Respiratory: Asthma, Tuberculosis GI: Cholelithiasis Psych: ADD/ADHD Musculoskeletal: Chronic back pain - Past Surgical History Past Surgical History: Yes General: Cholecystectomy - Present Medications Home Medications: Ambulatory Orders Medication Instructions Recorded Confirmed Cefpodoxime Proxetil [Vantin] 200 mg PO Q12H #28 tablet 10/27/20 Sertraline HCl 100 mg PO DAILY 10/27/20 10/27/20 - Allergies Allergies/Adverse Reactions: Allergies Allergy/AdvReac Type Severity Reaction Status Date / Time acetylcysteine Allergy Severe Respiratory Verified 12/05/20 13:57 [From Mucomyst] acetaminophen [From Vicodin] Allergy Intermediate Emesis Verified 12/05/20 13:57 hydrocodone bitartrate * Allergy Intermediate Emesis Verified 12/05/20 13:57 [From Vicodin] Latex, Natural Rubber AdvReac Intermediate Rash Verified 12/05/20 13:57 ciprofloxacin [From Cipro] AdvReac Mild vomiting Verified 12/05/20 13:57 and diarrhea ciprofloxacin HCl * AdvReac Mild vomiting Verified 12/05/20 13:57 [From Cipro] and diarrhea - Social History Does the pt smoke?: No Smoking Status: Never smoker Does the pt drink ETOH?: No Does the pt have substance abuse?: No - Immunizations Immunizations are current?: Yes - POLST Patient has POLST: No PD ED PE NORMAL - Vitals Vital signs reviewed: Yes (hypertensive ) - General General: Alert and oriented X 3, No acute distress, Well developed/nourished - HEENT HEENT: Atraumatic, PERRL, EOMI - Respiratory Respiratory: No respiratory distress - Derm Derm: Normal color, Warm and dry, No rash - Extremities Extremities: No deformity, Normal ROM s pain (Left great toe has a blood blister and the posterior margin of this appears to have ruptured. There was blood over the rest of the toe and this has been cleansed without evidence of laceration anywhere else. She is able to flex and extend the toe without difficulty has no pain associated with exam), No edema, Other (There is an abrasion and soft tissue swelling just below the patella on the left side. There is pain to direct pressure over this area the ligaments to the knee appears stable to testing distal neurovascular intact) - Neuro Neuro: Alert and oriented X 3, ore dryer 2-12 intact, No motor deficit, No sensory deficit, Normal speech Eye Opening: Spontaneous Motor: Obeys Commands Verbal: Oriented GCS Score: 15 - Psych Psych: Normal mood, Normal affect - Free text exam Free text exam: left thumb with pain to the DIP joint and not the the MCP joint. There is no deformity and there is laxity to the ligaments. Distal n/v intact. Results - Vitals Vitals: Vital Signs - 24 hr 12/05/20 13:57 Temperature 36.5 C Heart Rate 67 Respiratory 16 Rate Blood Pressure 152/67 H O2 Saturation 100 Oxygen O2 Source Room air - Rads (name of study) knee Radiology: Prelim report reviewed (Impression: No acute plain film abnormality is seen, including involving the patella. If there is strong clinical concern for internal derangement of the knee, please consider a dedicated, scheduled knee MRI for further evaluation (assuming there is no contraindication).), EMP read indepedently, See rad report thumb Radiology: Prelim report reviewed (Impression: No acute abnormality can seen on these plain films there is a normal-appearing sesamoid bone involving the interphalangeal joint of the thumb.), EMP read indepedently, See rad report Procedures - Splint (location) left thumb Splint applied by: Tech Type of splint: Fiberglass, Thumb spica Other: Patient tolerated well, No complications, Neurovascular intact, Good alignment PD MEDICAL DECISION MAKING - ED course Complexity details: reviewed results, re-evaluated patient, considered differential, d/w patient ED course: 35-year-old female following up some steps on her way into work today has injured her left lower extremity. She has a bruise below the kneecap and a blood blister to the left great toe. She also has sprained her left thumb. There is no evidence of fracture on films of the knee and the hand. She is placed into a thumb spica for comfort. No laceration required suturing. Departure - Departure Disposition: 01 Home, Self Care Clinical Impression: Blood blister Left thumb sprain Qualifiers: Encounter type: initial encounter Sprain of finger site: interphalangeal joint Qualified Code(s): S63.622A - Sprain of interphalangeal joint of left thumb, initial encounter Contusion of left knee Qualifiers: Encounter type: initial encounter Qualified Code(s): S80.02XA - Contusion of left knee, initial encounter Condition: Stable Instructions: ED Contusion Lower Ext, ED Sprain Finger Follow-Up: MAGDA DELGADO MD [Primary Care Provider] -
--- NOTE | 2020-12-05 14:42 | XRAY Report ---
PROCEDURE: Knee 4 View LT INDICATIONS: contusion patellar pain TECHNIQUE: 4 views of the left knee(s) were acquired. COMPARISON: None. FINDINGS: Bones: No fractures or dislocations. No suspicious bony lesions. In this patient with this given h istory, scrutiny is given to the patella. No patellar abnormality can be seen. Soft tissues: No joint effusion. No suspicious soft tissue calcifications. IMPRESSION: No acute plain film abnormality is seen, including involving the patella. If there is strong clinical concern for internal derangement of the knee, please consider a dedicated , scheduled knee MRI for further evaluation (assuming that there is no contraindication). Reviewed by: Ángel Man MD on 12/05/2020 1:41 PM [place] Approved by: Ángel Man MD on 12/05/2020 1:41 PM [place] Station ID: [id number]
--- NOTE | 2020-12-05 14:43 | XRAY Report ---
PROCEDURE: Hand 3 View LT INDICATIONS: L thumb DIP injury TECHNIQUE: 3 views of the hand(s) acquired. COMPARISON: None FINDINGS: Bones: In this patient with this given history, scrutiny is given to the interphalangeal joint of th e thumb. No fractures or dislocations can be seen. There is a normal-appearing sesamoid bone seen at this site. No fractures or dislocations are seen elsewhere. No suspicious bony lesions. Soft tissues: No suspicious soft tissue calcifications. IMPRESSION: No acute abnormality can be seen on these plain films. There is a normal-appearing sesamoid bone involving the interphalangeal joint of the thumb. Reviewed by: Ángel Man MD on 12/05/2020 1:42 PM [place] Approved by: Ángel Man MD on 12/05/2020 1:42 PM [place] Station ID: [id number]
== END 2020-12-05 15:03 | disposition home or self-care (01) ==
LOC: ED 13:53
DX: S90.422A Blister (nonthermal), left great toe, initial encounter (principal); S80.212A Abrasion, left knee, initial encounter; S63.622A Sprain of interphalangeal joint of left thumb, initial encounter; W10.8XXA Fall (on) (from) other stairs and steps, initial encounter; Y93.89 Activity, other specified; Y92.89 Other specified places as the place of occurrence of the external cause
CPT/HCPCS: 99282; 99284

== ENCOUNTER 2021-02-22 13:26 | Outpatient (CLI) | payer OTHER ==
--- NOTE | 2021-02-22 15:27 | MRI Report ---
PROCEDURE: Cervical Spine W/O INDICATIONS: CERVICALGIA TECHNIQUE: Noncontrast sagittal T1 spin echo and T2 fast spin echo, sagittal STIR, foraminal oblique sagittal T2 fast spin echo, and axial gradient echo or T2 fast spin echo through the cervical spine. COMPARISON: None. FINDINGS: Normal cervical spine vertebral body height, alignment, and signal intensity. No suspicious focal mar row signal abnormality or bone marrow edema. Normal morphology and signal intensity of the cervical c ord. There is no syrinx. Prevertebral and paraspinous soft tissues are unremarkable in the absence of IV contrast. C2-C3: No spinal canal or neural foraminal stenosis. C3-C4: No spinal canal or neural foraminal stenosis. C4-C5: Moderate spinal canal stenosis due to posterior discussed by complex with a disc protrusion i n the right paracentral zone and right lateral recess (with an associated annular fissure). Flattenin g of the ventral cord and posterior displacement of the cord with near complete circumferential CSF e ffacement. Facet and uncovertebral hypertrophy contribute to moderate right and mild left neural fora steven narrowing. C5-C6: Moderate spinal canal stenosis due to posterior discussed by complex with a disc protrusion i n the right paracentral zone and right lateral recess (with an associated annular fissure). Flattenin g of the ventral cord and posterior displacement of the cord with near complete circumferential CSF e ffacement. Facet and uncovertebral hypertrophy contribute to moderate left and mild right neural fora steven narrowing. C6-C7: No spinal canal or neural foraminal stenosis. C7-T1: No spinal canal or neural foraminal stenosis. IMPRESSION: At C4-C5, moderate spinal canal stenosis and moderate right neural foraminal narrowing. At C5-C6, moderate spinal canal stenosis and moderate left neural foraminal narrowing. Annular fissures of the C4-C5 and C5-C6 discs with associated disc protrusions Reviewed by: Jesus Carolina MD on 02/22/2021 3:26 PM PST Approved by: Jesus Carolina MD on 02/22/2021 3:26 PM PST Station ID: [id number]
== END 2021-02-22 13:27 | disposition home or self-care (01) ==
LOC: DI 13:26
PROVIDERS: ATTEND Family Medicine
DX: M47.812 Spondylosis without myelopathy or radiculopathy, cervical region (principal); M48.02 Spinal stenosis, cervical region; M50.221 Other cervical disc displacement at C4-C5 level; M50.80 Other cervical disc disorders, unspecified cervical region

== ENCOUNTER 2022-06-11 12:13 | Emergency (ER) | payer OTHER ==
[2022-06-11 12:34] VITALS: BP 159/87
[2022-06-11] MEDS ORDERED: TETANUS/DIPHTHERIA/PERTUSSIS 0.5 ML SYRINGE IM ONE (12:42)
[2022-06-11] MEDS ORDERED: LIDOCAINE 1% 2 ML VIAL SUBQ STA (12:42)
--- NOTE | 2022-06-11 12:45 | ED Physician Documentation ---
PD HPI SKIN - Stated complaint Stated Complaint: L ARM LAC - Chief complaint Chief Complaint: Laceration - History obtained from History obtained from: Patient - Additional information Additional information: 36-year-old female sustained a cut to the Left forearm with cuticle scissors. This was an accidental injury. She says gained a small cut to the left forearm, no other injuries. She states her last tetanus was 7 years ago. PD PAST MEDICAL HISTORY - Past Medical History Past Medical History: Yes Respiratory: Asthma, Tuberculosis GI: Cholelithiasis Psych: ADD/ADHD Musculoskeletal: Chronic back pain - Past Surgical History Past Surgical History: Yes General: Cholecystectomy - Present Medications Home Medications: Ambulatory Orders Medication Instructions Recorded Confirmed Sertraline HCl 200 mg PO DAILY 10/27/20 06/11/22 Dextroamphetamine/Amphetamine 20 mg PO DAILY 06/11/22 06/11/22 [Dextroamp-Amphetamine 5 mg Tab] Gabapentin [Neurontin] 600 mg PO BID 06/11/22 06/11/22 atenoloL [Tenormin] 25 mg PO HS PRN 06/11/22 06/11/22 - Allergies Allergies/Adverse Reactions: Allergies Allergy/AdvReac Type Severity Reaction Status Date / Time acetylcysteine Allergy Severe Respiratory Verified 12/05/20 13:57 [From Mucomyst] acetaminophen [From Vicodin] Allergy Intermediate Emesis Verified 12/05/20 13:57 hydrocodone bitartrate * Allergy Intermediate Emesis Verified 12/05/20 13:57 [From Vicodin] cinnamon Allergy Anaphylaxis Verified 06/11/22 12:34 Latex, Natural Rubber AdvReac Intermediate Rash Verified 12/05/20 13:57 ciprofloxacin [From Cipro] AdvReac Mild vomiting Verified 12/05/20 13:57 and diarrhea ciprofloxacin HCl * AdvReac Mild vomiting Verified 12/05/20 13:57 [From Cipro] and diarrhea - Social History Does the pt smoke?: No Smoking Status: Never smoker Does the pt drink ETOH?: No Does the pt have substance abuse?: No - Immunizations Immunizations are current?: Yes - POLST Patient has POLST: No PD ED PE NORMAL - Vitals Vital signs reviewed: Yes - General General: Alert and oriented X 3, No acute distress, Well developed/nourished - Derm Derm: Normal color, Warm and dry, Other (1 cm J-shaped laceration into the subcu tissue on the mid left forearm.) - Extremities Extremities: No deformity, No tenderness to palpate, Normal ROM s pain Results - Vitals Vitals: Vital Signs - 24 hr 06/11/22 12:30 Temperature 36.7 C Heart Rate 69 Respiratory 16 Rate Blood Pressure 159/87 H O2 Saturation 100 Oxygen O2 Source Room air Procedures - Laceration (location) Upper extremity left Length in cm: 1 Wound type: Curved Neurovascular status: Sensory intact, Motor intact, Vascular intact Tendon involvement: Tendon intact Anesthesia: Lidocaine 1% Wound preparation: Betadine, Irrigated copiously NS Skin layer closure: Nylon, Sutures - enter # (4), Other (Vicryl) Other: Patient tolerated well, No complications, Neurovascular intact, Dressing applied, Tetanus booster given PD Medical Decision Making - ED course Complexity details: d/w patient ED course: 36-year-old female presents with a small laceration to the left forearm as described in HPI. I discussed with patient that this could be closed with Dermabond and Steri-Strips versus sutures and patient elected for sutures. The wound was Anesthetized and cleaned as described above and 2 sutures were placed. These can come out in 7 to 10 days. Patient was advised of return precautions if any signs of infection. And she was given a tetanus booster today. Departure - Departure Disposition: 01 Home, Self Care Clinical Impression: Laceration of left forearm without complication Qualifiers: Encounter type: initial encounter Qualified Code(s): S51.812A - Laceration without foreign body of left forearm, initial encounter Condition: Good Instructions: ED Laceration All Comments: Thank you for visiting [facility] for your medical care. You presented with a left forearm laceration. You opted for suture repair and 4 sutures were placed. These sutures are dissolvable or can come out in 7 to 10 days at your primary doctor or in the walk-in clinic. Return at any point time if there are any signs of infection. You can take Tylenol and ibuprofen as needed for discomfort. Your tetanus was updated today.
== END 2022-06-11 13:18 | disposition home or self-care (01) ==
LOC: ED 12:13
DX: S51.812A Laceration without foreign body of left forearm, initial encounter (principal); W27.2XXA Contact with scissors, initial encounter
CPT/HCPCS: 12001; 90471; 99283

== ENCOUNTER 2023-05-15 10:57 | Emergency (ER) | payer OTHER ==
--- NOTE | 2023-05-15 11:41 | ED Physician Documentation ---
PD HPI UPPER EXT INJURY - Stated complaint Stated Complaint: RT SHOULDER PX - Chief complaint Chief Complaint: Trauma Ext - Additonal information Additional information: 37-year-old female presents emergency department for left shoulder pain. Patient said that she fell about 2 weeks ago onto ground because she lost balance that her crocs. She fell with her left arm to her side and directly onto her left shoulder. Since then she has been using Tylenol ibuprofen she is already on muscle relaxers as well as gabapentin and nothing seems to be alleviating the pain or discomfort she is now feeling a popping clicking sensation with certain shoulder movements and is having a lot of pain especially if she reaches behind her back most of the pain is to the anterior portion of the shoulder. There is no deformity she has been able to move it but there is significant amount of pain that is not getting any better. She seen her primary care provider who told her just to continue to rest it and says that this is what she has been doing but it just does not seem to be getting any better. PD PAST MEDICAL HISTORY - Past Medical History Past Medical History: Yes Cardiovascular: None Respiratory: Asthma, Tuberculosis Neuro: Peripheral neuropathy Endocrine/Autoimmune: None GI: Cholelithiasis TRADING ASSISTANT: None : None HEENT: None Psych: ADD/ADHD Musculoskeletal: Osteoarthritis, Chronic back pain Derm: None - Past Surgical History Past Surgical History: Yes General: Cholecystectomy, Other Ortho: Arthroscopic surgery /TRADING ASSISTANT: Other - Present Medications Home Medications: Ambulatory Orders Medication Instructions Recorded Confirmed Sertraline HCl 200 mg PO DAILY 10/27/20 05/15/23 Dextroamphetamine/Amphetamine 20 mg PO DAILY 06/11/22 05/15/23 [Dextroamp-Amphetamine 5 mg Tab] atenoloL [Tenormin] 25 mg PO HS PRN 06/11/22 05/15/23 Celecoxib [Celebrex] 200 mg PO DAILY 05/15/23 05/15/23 Pregabalin [Lyrica] 100 mg PO BID 05/15/23 05/15/23 tiZANidine [Zanaflex] 4 mg PO Q8H PRN 05/15/23 05/15/23 - Allergies Allergies/Adverse Reactions: Allergies Allergy/AdvReac Type Severity Reaction Status Date / Time acetylcysteine Allergy Severe Respiratory Verified 05/15/23 10:59 [From Mucomyst] acetaminophen [From Vicodin] Allergy Intermediate Emesis Verified 05/15/23 10:59 hydrocodone bitartrate * Allergy Intermediate Emesis Verified 05/15/23 10:59 [From Vicodin] cinnamon Allergy Anaphylaxis Verified 05/15/23 10:59 Latex, Natural Rubber AdvReac Intermediate Rash Verified 05/15/23 10:59 ciprofloxacin [From Cipro] AdvReac Mild vomiting Verified 05/15/23 10:59 and diarrhea ciprofloxacin HCl * AdvReac Mild vomiting Verified 05/15/23 10:59 [From Cipro] and diarrhea - Social History Does the pt smoke?: No Smoking Status: Never smoker Does the pt drink ETOH?: No Does the pt have substance abuse?: No - Immunizations Immunizations are current?: Yes - POLST Patient has POLST: No PD ED PE NORMAL - Vitals Vital signs reviewed: Yes - General General: Alert and oriented X 3, No acute distress, Well developed/nourished - Neck Neck: No bony TTP - Back Back: No CVA TTP, No spinal TTP - Derm Derm: Normal color, Warm and dry, No rash - Free text exam Free text exam: Left upper extremity. Tenderness with abduction, tenderness with palpation to the acromioclavicular joint region. There is no catching no obvious popping or clicking with any range of motion activities. She is able to elicit a mild popping with anterior posterior movement of her shoulder. Results - Vitals Vitals: Vital Signs - 24 hr 05/15/23 05/15/23 11:00 13:19 Temperature 36.3 C L Heart Rate 78 69 Respiratory 16 15 Rate Blood Pressure 144/77 H 133/69 H O2 Saturation 100 98 Oxygen O2 Source Room air - Rads (name of study) left shoulder xray Relevant Findings:: Final report received, EMP independent interpretation of test, Other (No acute fractures dislocations or other acute abnormalities or findings.) PD Medical Decision Making - ED course ED course: 37-year-old female presents emergency department for left shoulder pain ongoing for 2 weeks. X-rays complete and Do not reveal any fractures or dislocations or other acute abnormalities or findings. Patient was offered Tylenol ibuprofen and oxycodone here in the emergency department she said that she has all these medications at home including Lyrica and gabapentin she does not believe that she needs any additional medications to help manage her pain at home. She was also offered a shoulder sling which she also declined. Patient was told to continue to rest and gently do some range of motion exercises to the left shoulder follow-up with primary care provider if pain continues to persist for possible physical therapy referral and possible orthopedic surgeon referral. No further emergent workup indicated at this time she is safe for discharge. Departure - Departure Disposition: 01 Home, Self Care Clinical Impression: Acromioclavicular (AC) joint injury Qualifiers: Encounter type: initial encounter Laterality: left Qualified Code(s): S49.92XA - Unspecified injury of left shoulder and upper arm, initial encounter Instructions: Understanding AC Joint Sprain Comments: Thank you for trusting us with your care. We have completed x-rays and they are no fractures or dislocation noted on x-rays continue at you are doing Tylenol ibuprofen and ice. Please follow-up with your primary care provider for possible physical therapy referral.. Keep in mind that these can take up to 6 weeks to fully heal and recover. Do not leave ice on for longer than 20 minutes. Wishing you a speedy recovery. Forms: PCP List Discharge Date/Time: 05/15/23 13:21
[2023-05-15 13:24] VITALS: BP 133/69; O2SAT 98
--- NOTE | 2023-05-15 13:33 | XRAY Report ---
PROCEDURE: Shoulder 2+V LT INDICATIONS: injury TECHNIQUE: 3 views of the shoulder were acquired. COMPARISON: None. FINDINGS: Bones: No fractures or dislocations. No suspicious bony lesions. Visualized ribs appear intact. Soft tissues: No suspicious soft tissue calcifications. The visualized lungs are within normal limi ts. IMPRESSION: No acute fracture. No osseous lesion. If symptoms and/or clinical suspicion for patholog y continue, further assessment with repeat plain films, or advanced imaging (e.g., CT, MRI, or bone s can) is recommended for further assessment. Reviewed by: Joseph Bundy MD on 05/15/2023 11:29 AM PST Approved by: Joseph Bundy MD on 05/15/2023 11:29 AM PST Station ID: [id number]
== END 2023-05-15 13:21 | disposition home or self-care (01) ==
LOC: ED 10:57
DX: S49.92XA Unspecified injury of left shoulder and upper arm, initial encounter (principal); W18.30XA Fall on same level, unspecified, initial encounter
CPT/HCPCS: 99283